=== PATIENT | female | born 1940 | race Caucasian/White ===

== ENCOUNTER 2018-09-23 14:45 | Emergency (ER) | payer MEDICARE, OTHER, SELFPAY ==
[2018-09-23 15:02] VITALS: BP 138/64; PULSE 58; RESP 14; TEMP 36.6; O2SAT 100; BMI 25.2
--- NOTE | 2018-09-23 15:10 | DI.US.S_ITS ---
PROCEDURE: US PERIPH VENOUS LOW EXTREM RT INDICATIONS: RLE pain and swelling in calf x 36 hours TECHNIQUE: Real-time imaging, as well as color and pulse Doppler interrogation, were performed of the lower extremity deep veins from the inguinal ligament to the popliteal fossa. COMPARISON: [facility], , PVE UNILATERAL LEFT, 01/25/2014, 18:56. FINDINGS: The deep veins are normally compressible, and free of intraluminal thrombus. Color and pulse Doppler demonstrate normal phasic intraluminal flow. There is normal augmentation response to distal compression maneuver. IMPRESSION: No evidence right lower extremity deep vein thrombus. Dictated by: Kevin Ortega M.D. on 09/23/2018 at 16:13 Approved by: Kevin Ortega M.D. on 09/23/2018 at 16:14
--- NOTE | 2018-09-23 15:18 | ED_ITS ---
HPI - Extremity Problem <Brittney Sutton PA-C - Last Filed: 09/23/18 21:56> General Chief complaint: Extremity Problem,Nontraumatic Stated complaint: SWELLING IN RT LEG Time Seen by Provider: 09/23/18 15:10 Source: patient Mode of arrival: ambulatory Limitations: no limitations History of Present Illness HPI Narrative: This 77-year-old female comes to ED today due to some increased swelling in her right leg. She states that she has had a little bit of pressure sensation in her calf as well. She denies any injury to the lower extremity. She denies any chest pain or dyspnea. 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 She denies any symptoms such as chest pain or dyspnea. She has no history of blood clots. [place] checked out, so came in Related Data Home Medications Medication Instructions Recorded Confirmed Probiotic 1 cap PO DAILY #0 04/25/13 09/23/18 [MAGNESIUM CALMING] 1 tab PO BID #0 04/25/13 09/23/18 cyanocobalamin (vitamin B-12) 1,000 mcg PO DAILY #0 04/25/13 09/23/18 coenzyme Q10 [Co Q-10] 100 mg PO DAILY #0 08/19/17 09/23/18 Glucose: Test Strips 0 str MISCELLANEOUS SEE 09/23/18 09/23/18 INSTRUCTIONS buspirone 15 mg PO BID 09/23/18 09/23/18 escitalopram oxalate 20 mg PO BEDTIME 09/23/18 09/23/18 gabapentin 100 mg PO BID 09/23/18 09/23/18 oxybutynin chloride 5 mg PO DAILY 09/23/18 09/23/18 Previous Rx's Medication Instructions Recorded metronidazole [MetroCream] 0.75 % TP BID #1 gm 08/04/16 Allergies Allergy/AdvReac Type Severity Reaction Status Date / Time adhesive tape Allergy Severe Rash Verified 09/23/18 16:20 niacin [NIACIN] Allergy Mild Verified 09/23/18 15:09 COFFEE AdvReac Mild TACHYCARDIA Uncoded 09/23/18 16:20 Review of Systems <Brittney Sutton PA-C - Last Filed: 09/23/18 21:56> Review of Systems All systems reviewed & are unremarkable except as noted in HPI and below Exam <SANTHOSH Chase Last Filed: 09/23/18 21:56> Narrative Exam Narrative: GENERAL APPEARANCE: Patient sitting comfortably, in no distress. NECK/THYROID: Neck supple LUNGS: Clear to auscultation bilaterally. HEART: Regular rate and rhythm without murmur, normal S1, S2, no S3 or S4. ABDOMEN: Soft, NT, ND, + BS x 4 quadrants EXTREMITIES: No cyanosis or edema. Numerous varicosities bilaterally. Right leg there is mild tenderness at the inferior medial cheek as well as the mid calf. NEUROVASCULAR: Right foot is warm and pink with intact pedal pulses and sensation grossly intact Initial Vital Signs Initial Vital Signs: Vital Signs Temperature 97.8 F 09/23/18 15:02 Pulse Rate 58 L 09/23/18 15:02 Respiratory Rate 14 09/23/18 15:02 Blood Pressure 138/64 09/23/18 15:02 Pulse Oximetry 100 09/23/18 15:02 <DO Radha Rouse Last Filed: 09/24/18 13:46> Initial Vital Signs Initial Vital Signs: Vital Signs Temperature 97.8 F 09/23/18 15:02 Pulse Rate 58 L 09/23/18 15:02 Respiratory Rate 14 09/23/18 15:02 Blood Pressure 138/64 09/23/18 15:02 Pulse Oximetry 100 09/23/18 15:02 Course <SANTHOSH Chase Last Filed: 09/23/18 21:56> Orders Ordered: ED Orders 09/23/18 15:10 periph venous low extrem rt Stat Vital Signs - 8 hr 09/23/18 15:02 09/23/18 15:57 Temperature 97.8 F Pulse Rate 58 L Pulse Rate [Right Dorsalis Pedis] 70 Respiratory Rate 14 Blood Pressure 138/64 Pulse Oximetry 100 <DO Radha Rouse Filed: 09/24/18 13:46> Orders Ordered: ED Orders 09/23/18 15:10 periph venous low extrem rt Stat Vital Signs - 8 hr 09/23/18 15:02 09/23/18 15:57 Temperature 97.8 F Pulse Rate 58 L Pulse Rate [Right Dorsalis Pedis] 70 Respiratory Rate 14 Blood Pressure 138/64 Pulse Oximetry 100 MDM - Extremity (Nontraumatic) <Brittney Sutton PA-C - Last Filed: 09/23/18 21:56> Imaging Data Venous US: Radiologist's impression: [address] [address] Ultrasound Report Signed Patient: Stephanie Fernandez JMR#: [id number] : 2Acct:[id number] Age/Sex: 77 / FDate of Service: 09/23/18 Loc: ED Accession Number: [id number] Procedure: US perip venous low extrem rt Ordering Provider: Radu Parmar D.O. PROCEDURE: US PERIP VENOUS LOW EXTREM RT INDICATIONS: RLE pain and swelling in calf x 36 hours TECHNIQUE: Real-time imaging, as well as color and pulse Doppler interrogation, were performed of the lower extremity deep veins from the inguinal ligament to the popliteal fossa. COMPARISON: [facility], , PVE UNILATERAL LEFT, 01/25/2014, 18:56. FINDINGS: The deep veins are normally compressible, and free of intraluminal thrombus. Color and pulse Doppler demonstrate normal phasic intraluminal flow. There is normal augmentation response to distal compression maneuver. IMPRESSION: No evidence right lower extremity deep vein thrombus. Dictated by: Kevin Ortega M.D. on 09/23/2018 at 16:13 Approved by: Kevin Ortega M.D. on 09/23/2018 at 16:14 Discharge Plan Departure Patient Disposition: Home Clinical Impression: Pain and swelling of lower leg Discharge Date/Time: 09/23/18 17:08 Interventions: ED Discharge Assessment Last Done: 09/23/18 17:08 Instructions: DI for Varicose Veins Activity Restrictions/Additional Instructions: There was no blood clot found on your ultrasound today. Your tenderness and swelling may be due to your varicose veins. Sometimes this can wax and wane. It may be helpful to wear some compression stockings for comfort. Elevate your legs above your heart when you are resting. Please return if you have any acutely worsening or new symptoms such as chest pain or trouble breathing Prescriptions: No Action Probiotic 1 cap PO DAILY Qty: 0 RF: 0 cyanocobalamin (vitamin B-12) 1,000 MCG tablet extended release 1,000 mcg PO DAILY Qty: 0 RF: 0 [MAGNESIUM CALMING] 1 tab PO BID Qty: 0 RF: 0 metronidazole [MetroCream] 0.75 % cream 0.75 % TP BID Qty: 1 RF: 2 coenzyme Q10 [Co Q-10] 100 MG capsule 100 mg PO DAILY Qty: 0 RF: 0 oxybutynin chloride 5 mg tablet extended release 24hr 5 mg PO DAILY RF: 0 gabapentin 100 mg capsule 100 mg PO BID RF: 0 buspirone 15 mg tablet 15 mg PO BID RF: 0 escitalopram oxalate 20 mg tablet 20 mg PO BEDTIME RF: 0 Glucose: Test Strips miscellaneous SEE INSTRUCTIONS RF: 0 Referrals: Gonzalez Coelho MD [Primary Care Provider] - <Radu Parmar DO - Last Filed: 09/24/18 13:46> Cosign ED Attending Cosronnaature Attestation: I was immediately available in the department for consultation. Documentation has been reviewed. I agree with assessment and plan.
[2018-09-23 15:57] VITALS: PULSE 70
== END 2018-09-23 17:08 | disposition home or self-care (01) ==
PROVIDERS: Emergency Provider Internal Medicine; PCP Family Medicine
DX: M79.661 Pain in right lower leg (principal); M79.89 Other specified soft tissue disorders
CPT/HCPCS: 93971; 99282; 99284